=== PATIENT | male | born 1975 | race Caucasian/White ===

== ENCOUNTER → 2017-07-15 | Outpatient (CLI) | payer BC, OTHER ==
--- NOTE | 2017-07-15 08:20 | DIAGNOSTIC IMAGING REPORT ---
TESTICULAR ULTRASOUND HISTORY: N43.40 Spermatocele COMPARISON: None. FINDINGS: Right testis: 4.9 x 2.8 x 2.3 cm. There are no intratesticular masses. Normal color flow. Trace hydrocele. The epididymis is unremarkable. Left testis: 4.6 x 2.1 x 3.3 cm. There are no intratesticular masses. Normal color flow. Trace hydrocele. There is a 3.1 x 2.2 x 2.2 cm epididymal head cyst/spermatocele.. IMPRESSION: 1. A 3.1 x 2.2 x 2.2 cm left epididymal head cyst/spermatocele. 2. Trace bilateral hydroceles. Electronically signed by: Campbell Iqbal M.D. 07/15/2017 8:18 AM Dictated Date/Time: 07/15/2017 8:15 AM
== END | disposition home or self-care (01) ==
LOC: C.ULTR 07:40
PROVIDERS: ATTEND Urology
DX: N43.40 Spermatocele of epididymis, unspecified (principal)